=== PATIENT | male | born 1970 | race Caucasian/White ===

== ENCOUNTER → 2021-02-04 | Outpatient (CLI) | payer OTHER | LOC: MRI 01-31 08:30 | DX: R22.2 Localized swelling, mass and lump, trunk (principal); I10 Essential (primary) hypertension; E66.01 Morbid (severe) obesity due to excess calories; Z68.41 Body mass index [BMI] 40.0-44.9, adult; K44.9 Diaphragmatic hernia without obstruction or gangrene; J98.59 Other diseases of mediastinum, not elsewhere classified | CPT/HCPCS: 36415; 82565; A9577 ==